=== PATIENT | female | born 1995 | race Two or more races ===

== ENCOUNTER → 2020-01-12 | Outpatient (CLI) | payer OTHER | END | disposition home or self-care (01) | LOC: LAB 09:37 | PROVIDERS: ATTEND Preventive Medicine Preventive Medicine/Occupational Environmental Medicine | DX: Z02.1 Encounter for pre-employment examination (principal) | CPT/HCPCS: 36415; 86706; 86735; 86762; 86765; 86787 ==

== ENCOUNTER 2023-01-01 18:57 | Emergency (ER) | payer MEDICAID ==
[~2023-01-01] VITALS: Ht 160 cm; Wt 72.7 kg
[2023-01-01 19:42] LABS: Urine Blood 3+ /uL (Negative); Urine Clarity HAZY (Clear); Urine Color PINK (Yellow); Urine Protein, UAD 1+ (Negative); Urine Specific Gravity 1.022 (1.001-1.035); Urine Urobilinogen Normal (Negative)
[2023-01-01 19:43] LABS: Urine Bacteria NONE SEEN /hpf (None Seen); Urine WBC 194 /hpf (0 - 5)
[2023-01-01 20:00] LABS: Basophils # (auto) 0.1 10 ^3/uL (0-0.2); Basophils % (auto) 0.7 % (0.0-2.0); Eosinophils # (auto) 0.2 10 ^3/uL (0-0.8); Eosinophils % (auto) 1.8 % (0.0-7.0); Hematocrit 41.1 % (36.0-46.0); Hemoglobin 13.9 g/dL (12.2-16.2); Lymphocytes # (auto) 2.8 10 ^3/uL (0.4-5.4); Lymphocytes % (auto) 32.3 % (10.0-50.0); Mean Corpuscular Hemoglobin 30.4 pg (28.0-32.0); Mean Corpuscular Hgb Conc. 33.7 g/dL (32.0-36.0); Mean Corpuscular Volume 90.2 fL (80.0-100.0); Monocytes # (auto) 0.4 10 ^3/uL (0-1.3); Monocytes % (auto) 4.7 % (0.0-12.0); Neutrophils # (auto) 5.2 10 ^3/uL (1.6-8.6); Neutrophils % (auto) 60.5 % (37.0-80.0); Nucleated Red Blood Cells % 0.1 %; Red Blood Cells 4.56 10^6/uL (4.0-5.20); Red Cell Distribution Width 12.9 % (11.8-14.3); White Blood Cell 8.6 10^3/uL (4.4-10.8)
[2023-01-01 20:20] LABS: Alanine Aminotransferase 39 U/L (7-40); Albumin 5.7 g/dL (3.2-4.8); Alkaline Phosphatase 68 U/L (46-116); Anion Gap 5 (5-15); Aspartate Aminotransferase 46 U/L (13-40); Bilirubin, Total 0.3 mg/dL (0.2-1.0); Blood Urea Nitrogen 10 mg/dL (9-23); Calcium 10.1 mg/dL (8.7-10.4); Carbon Dioxide 29 mmol/L (20-30); Chloride 106 mmol/L (98-107); Glucose 103 mg/dL (74-106); Potassium 3.8 mmol/L (3.5-5.1); Sodium 140 mmol/L (136-145)
[2023-01-01] MEDS ORDERED: SULFAMETHOX W/TRIMETH(800/160MG) DS TAB PO ONE (22:30)
[2023-01-01] MEDS ORDERED: cefTRIAXone SOD 1,000 MG VL IM ONE (22:30)
[2023-01-01] MEDS ORDERED: IBUPROFEN 600 MG TAB PO ONE (22:30)
[2023-01-01] MEDS ORDERED: IBUP-1455 PO (22:37)
[2023-01-01] MEDS ORDERED: LEVO750T8 PO (22:37)
[2023-01-01] MEDS ORDERED: levoFLOXacin 250 MG TAB PO ONE (22:45)
[2023-01-01] MEDS ORDERED: LIDOCAINE 1% HCL (LOCAL ANESTH.) INJ 20ML MDV ONE (23:00)
[2023-01-01 23:06] VITALS: BP 117/61; PULSE 85; RESP 18; TEMP 97.9; O2SAT 95
== END 2023-01-01 23:07 | disposition home or self-care (01) ==
LOC: ER 18:57
DX: N12 Tubulo-interstitial nephritis, not specified as acute or chronic (principal)
CPT/HCPCS: 36415; 74176; 80053; 81001; 81025; 83605; 85025; 87040; 96372; 99285; J0696; J2001